=== PATIENT | male | born 1990 | race Caucasian/White ===

== ENCOUNTER 2024-08-26 10:52 | Emergency (ER) | payer OTHER, SELFPAY ==
[2024-08-26 11:00] VITALS: BP 132/88; PULSE 89; RESP 18; TEMP 36.4; O2SAT 100
--- OUTSIDE RECORDS SUMMARY | 2024-08-26 11:52 | XMS_ITS | Data Portability ---
Author Organization [facility] Address [address] [place] [address] Care Team Providers Care Credit Checker Name Role Phone BEAR LIRIANO [facility] Assessment No assessment recorded. Plan of Treatment Reminders Order Date Submit Date Provider Last Modified By Organization Details Last Modified Time Details Appointments None recorded. Lab lipid panel, serum 2023 024 [facility], [address] [place] [address] 2, [place], [address], 4 10:37:14 hepatic function panel, serum 2023 024 [facility], [address] [place] [address] 2, [place], [address], 4 10:37:15 lipid panel, serum 2023 024 eemeryma [facility], [address] [place] [address] 2, [place], [address], 4 10:04:39 HbA1c (hemoglob in A1c), blood 2023 024 In-Office Order, Internal Use Only DO Not Attach Compendium DO Not Attach Compendium, Do Not Delete/merge, [id number] 4 14:31:06 lipid panel, serum 2023 024 [facility], [address] [facility], [facility] 2, [place], [address], 4 08:37:33 CMP, serum or plasma 2023 024 [facility], [address] [facility] [address], [place], [address], 4 08:37:34 CBC 2023 024 [facility], [address] [facility] [address], [place], [address], 4 08:37:34 lipid panel, serum 2016 017 [facility], [address], [address], [place], [address], 7 11:06:28 HbA1c (hemoglob in A1c), blood 2016 017 [facility], [address], [address], [place], [address], 7 11:06:28 CBC 2016 017 [facility], [address], [address], [place], [address], 7 11:06:28 CMP, serum or plasma 2016 017 [facility], [address], [address], [place], [address], 7 11:06:28 Referral None recorded. Procedures None recorded. Surgeries None recorded. Imaging US, abdomen + pelvis 2016 017 ATHENAFAX Not available 7 16:34:30 Medication Orders Lexapro 10 mg tablet 2023 024 [facility], [address] [facility], [place], [address], 4 15:59:31 Nicoderm CQ 21 mg/24 hr daily transderm al patch 2016 [facility]17 [id number], [address], [place], [place], [id number], 08:19:27 Patient TargetsNo targets recorded. Patient Instructions Encounter Date Encounter Id Patient Instructions Last Modified By Organization Details Last Modified Time 05/31/2016 [id number] f/u in 1 month nsuthan Not available 05/31/2016 11:12:42 11/17/2023 [id number] A healthy lifestyle: care instructions [email or web address] Not available 11/17/2023 14:31:05 Reason for Referral None Reported. Results Created Date Observation Date Name Description Value Unit Range Abnormal Flag Note LastModifiedBy Organization Detail LastModifiedTime 11/17/1911/18/2023 LIPID PANEL cholesterol, total 293 mg/dL 100-19 9 above high normal Not Available [facility] ([facility]) [address] [place], [address], 11/18/2023 08:37:33 11/17/19 24 11/18/2023 LIPID PANEL triglyceride s 195 mg/dL 0-149 above high normal Not Available [facility] ([facility]) [address] [place], [address], 11/18/2023 08:37:33 11/17/19 24 11/18/2023 LIPID PANEL HDL cholesterol 55 mg/dL >39 Not Available [facility] ([facility]) [address] [place], [address], 11/18/2023 08:37:33 11/17/19 24 11/18/2023 LIPID PANEL VLDL cholesterol ronna 37 mg/dL 5-40 Not Available [facility] ([facility]) [address] [place], [address], 11/18/2023 08:37:33 11/17/19 24 11/18/2023 LIPID PANEL LDL chol calc ([facility]) 201 mg/dL 0-99 above high normal Not Available [facility] ([facility]) [address] [facility], [place], [address], 11/18/2023 08:37:33 11/17/19 24 11/18/2023 LIPID PANEL LDL calc comment: COMMEN T Consi rowena evalu ating for Famil ial Hyper yaa stero lemia (FH), if clini yuliana indic ated. Not Available [facility] ([facility]) [address] [place], [address], 11/18/2023 08:37:33 11/17/19 24 11/18/2023 COMP. METAB OLIC PANEL (14) glucose 110 mg/dL 70-99 above high normal Not Available [facility] ([facility]) [address] [place], [address], 11/18/2023 08:37:34 11/17/19 24 11/18/2023 COMP. METAB OLIC PANEL (14) BUN 9 mg/dL 6-20 Not Available [facility] ([facility]) [address] [place], [address], 11/18/2023 08:37:34 11/17/19 24 11/18/2023 COMP. METAB OLIC PANEL (14) creatinine 1.12 mg/dL 0.76-1 .27 Not Available [facility] ([facility]) [address] [place], [address], 11/18/2023 08:37:34 11/17/19 24 11/18/2023 COMP. METAB OLIC PANEL (14) eGFR 90 mL/mi n/1.7 3 >59 Not Available [facility] ([facility]) [address] [place], [address], 11/18/2023 08:37:34 11/17/19 24 11/18/2023 COMP. METAB OLIC PANEL (14) BUN/creatini ne ratio 8 9-20 below low normal Not Available [facility] ([facility]) [address] [facility] [place], [address], 11/18/2023 08:37:34 11/17/19 24 11/18/2023 COMP. METAB OLIC PANEL (14) sodium 139 mmol/ L 134-14 4 Not Available [facility] ([facility]) [address] [place], [address], 11/18/2023 08:37:34 11/17/19 24 11/18/2023 COMP. METAB OLIC PANEL (14) potassium 4.1 mmol/ L 3.5-5. 2 Not Available [facility] ([facility]) [address] [place], [address], 11/18/2023 08:37:34 11/17/19 24 11/18/2023 COMP. METAB OLIC PANEL (14) chloride 98 mmol/ L 96-106 Not Available [facility] ([facility]) [address] [place], [address], 11/18/2023 08:37:34 11/17/19 24 11/18/2023 COMP. METAB OLIC PANEL (14) carbon dioxide, total 24 mmol/ L 20-29 Not Available [facility] ([facility]) [address] [place], [address], 11/18/2023 08:37:34 11/17/19 24 11/18/2023 COMP. METAB OLIC PANEL (14) calcium 9.9 mg/dL 8.7-10 .2 Not Available [facility] ([facility]) [address] [place], [address], 11/18/2023 08:37:34 11/17/19 24 11/18/2023 COMP. METAB OLIC PANEL (14) protein, total 7.6 g/dL 6.0-8. 5 Not Available [facility] ([facility]) [address] [place], [address], 11/18/2023 08:37:34 11/17/19 24 11/18/2023 COMP. METAB OLIC PANEL (14) albumin 5.2 g/dL 4.1-5. 1 above high normal Not Available [facility] ([facility]) [address] [facility] [place], [address], 11/18/2023 08:37:34 11/17/19 24 11/18/2023 COMP. METAB OLIC PANEL (14) globulin, total 2.4 g/dL 1.5-4. 5 Not Available [facility] ([facility]) [address] [facility] [place], [address], 11/18/2023 08:37:34 11/17/19 24 11/18/2023 COMP. METAB OLIC PANEL (14) bilirubin, total 0.4 mg/dL 0.0-1. 2 Not Available [facility] ([facility]) [address] [facility] [place], [address], 11/18/2023 08:37:34 11/17/19 24 11/18/2023 COMP. METAB OLIC PANEL (14) alkaline phosphatase 86 IU/L 44-121 Not Available [facility] ([facility]) [address] [facility] [place], [address], 11/18/2023 08:37:34 11/17/19 24 11/18/2023 COMP. METAB OLIC PANEL (14) AST (SGOT) 109 IU/L 0-40 above high normal Not Available [facility] ([facility]) [address] [facility] [place], [address], 11/18/2023 08:37:34 11/17/19 24 11/18/2023 COMP. METAB OLIC PANEL (14) ALT (SGPT) 228 IU/L 0-44 above high normal Not Available [facility] ([facility]) [address] [facility] [place], [address], 11/18/2023 08:37:34 11/17/19 24 11/18/2023 CBC, PLATE LET, NO DIFFE RENTI AL WBC 4.5 x10e3 /uL 3.4-10 .8 Not Available [facility] ([facility]) [address] [facility], [place], [address], 11/18/2023 08:37:34 11/17/19 24 11/18/2023 CBC, PLATE LET, NO DIFFE RENTI AL RBC 5.36 x10e6 /uL 4.14-5 .80 Not Available [facility] ([facility]) [address] [facility], [place], [address], 11/18/2023 08:37:34 11/17/1911/18/2023 CBC, PLATE LET, NO DIFFE RENTI AL hemoglobin 17.3 g/dL 13.0-1 7.7 Not Available [facility] ([facility]) [address] [facility], [place], [address], 11/18/2023 08:37:34 11/17/19 24 11/18/2023 CBC, PLATE LET, NO DIFFE RENTI AL hematocrit 49.7 % 37.5-5 1.0 Not Available [facility] ([facility]) [address] [facility], [place], [address], 11/18/2023 08:37:34 11/17/1911/18/2023 CBC, PLATE LET, NO DIFFE RENTI AL MCV 93 fL 79-97 Not Available [facility] ([facility]) [address] [facility], [place], [address], 11/18/2023 08:37:34 11/17/1911/18/2023 CBC, PLATE LET, NO DIFFE RENTI AL MCH 32.3 pg 26.6-3 3.0 Not Available [facility] ([facility]) [address] [place], [address], 11/18/2023 08:37:34 11/17/1911/18/2023 CBC, PLATE LET, NO DIFFE RENTI AL MCHC 34.8 g/dL 31.5-3 5.7 Not Available [facility] ([facility]) [address] [facility], [place], [address], 11/18/2023 08:37:34 11/17/19 24 11/18/2023 CBC, PLATE LET, NO DIFFE RENTI AL RDW 13.0 % 11.6-1 5.4 Not Available [facility] ([facility]) [address] [facility], [place], [address], 11/18/2023 08:37:34 11/17/19 24 11/18/2023 CBC, PLATE LET, NO DIFFE RENTI AL platelets 177 x10e3 /uL 150-45 0 Not Available [facility] ([facility]) [address] [facility], [place], [address], 11/18/2023 08:37:34 11/17/19 24 11/17/2023 HbA1c (hemo globi n A1c), blood HbA1c 5.0 Not Available In-Office Order Internal Use Only DO Not Attach Compendium DO Not Attach Compendium, Do Not Delete/merge, [id number] 11/17/2023 13:41:08 11/27/19 24 11/28/2023 HEPAT IC FUNCT ION PANEL (7) protein, total 6.9 g/dL 6.0-8. 5 Not Available [facility] ([facility]) [address] [facility], [place], [address], 11/28/2023 08:37:26 11/27/19 24 11/28/2023 HEPAT IC FUNCT ION PANEL (7) albumin 4.7 g/dL 4.1-5. 1 Not Available [facility] ([facility]) [address] [facility], [place], [address], 11/28/2023 08:37:26 11/27/19 24 11/28/2023 HEPAT IC FUNCT ION PANEL (7) bilirubin, total 0.6 mg/dL 0.0-1. 2 Not Available [facility] ([facility]) [address] [facility] [place], [address], 11/28/2023 08:37:26 11/27/19 24 11/28/2023 HEPAT IC FUNCT ION PANEL (7) bilirubin, direct 0.17 mg/dL 0.00-0 .40 Not Available [facility] ([facility]) [address] [facility] [place], [address], 11/28/2023 08:37:26 11/27/19 24 11/28/2023 HEPAT IC FUNCT ION PANEL (7) alkaline phosphatase 74 IU/L 44-121 Not Available [facility] ([facility]) [address] [facility] [place], [address], 11/28/2023 08:37:26 11/27/19 24 11/28/2023 HEPAT IC FUNCT ION PANEL (7) AST (SGOT) 97 IU/L 0-40 above high normal Not Available [facility] ([facility]) [address] [facility] [place], [address], 11/28/2023 08:37:26 11/27/19 24 11/28/2023 HEPAT IC FUNCT ION PANEL (7) ALT (SGPT) 210 IU/L 0-44 above high normal Not Available [facility] ([facility]) [address] [facility] [place], [address], 11/28/2023 08:37:26 11/27/19 24 11/28/2023 INTER PRETA TION: interpretati on: Commen t Not infec laya with HCV unles s early or acute infec tion is suspe cted (whic h may be delay ed in an immun ocomp romis ed indiv idual ), or other evide nce exist s to indic ate HCV infec tion. Not Available [facility] ([facility]) [address] [facility] [place], [address], 11/28/2023 08:37:28 11/27/19 24 11/28/2023 HCV ANTIB MARY RFX TO QUANT PCR HCV Ab NON REACTI VE nonrea ctive Not Available [facility] ([facility]) [address] [facility], [place], [address], 11/28/2023 08:37:29 11/27/19 24 11/28/2023 HAV ANTIB MARY W/ RFX hep A Ab, total POSITI VE negati ve abnormal Comme nt: The HAV total antib mary assay detec ts both IgG and IgM but does not diffe renti ate betwe en them. A negat alek resul t sugge sts susce ptibi lity to infec tion. A posit alek resul t could be due to vacci natio n, previ ously resol daniel infec tion or activ e infec tion. Testi ng for HAV IgM shoul d be perfo rmed if activ e HAV infec tion is suspe cted. [facility] offer s profi les that will autom atica lly refle x posit alek HAV total antib mary resul ts to IgM (e.g. , panel #[id number] HAV Antib mary w/ Rfx). Not Available [facility] ([facility]) [address] [facility], [place], [address], 11/28/2023 08:37:30 11/27/19 24 11/28/2023 HEPAT ITIS B CORE AB W/REF GARO hep B core Ab, tot NEGATI VE negati ve Not Available [facility] ([facility]) [address] [facility], [place], [address], 11/28/2023 08:37:30 11/27/19 24 11/28/2023 IRON AND TIBC iron bind.cap.(TI BC) 315 ug/dL 250-45 0 Not Available [facility] ([facility]) [address] [facility], [place], [address], 11/28/2023 08:37:31 11/27/19 24 11/28/2023 IRON AND TIBC UIBC 181 ug/dL 111-34 3 Not Available [facility] ([facility]) [address] [place], [address], 11/28/2023 08:37:31 11/27/19 24 11/28/2023 IRON AND TIBC iron 134 ug/dL 38-169 Not Available [facility] ([facility]) [address] [facility], [place], [address], 11/28/2023 08:37:31 11/27/19 24 11/28/2023 IRON AND TIBC iron saturation 43 % 15-55 Not Available [facility] ([facility]) [address] [facility], [place], [address], 11/28/2023 08:37:31 11/27/19 24 11/28/2023 HEP B SURFA CE AB, QUAL hep B surface Ab, qual REACTI VE Non React alek: Incon siste nt with immun ity, less than 10 mIU/m L React alek: Consi stent with immun ity, great er than 9.9 mIU/m L Not Available [facility] ([facility]) [address] [facility], [place], [address], 11/28/2023 08:37:32 11/27/19 24 11/28/2023 HBSAG SCREE N HBsAg screen NEGATI VE negati ve Not Available [facility] ([facility]) [address] [place], [address], 11/28/2023 08:37:32 11/27/19 24 11/28/2023 HEP A AB, IGM hep A Ab, IgM Negati ve negati ve Not Available [facility] ([facility]) [address] [place], [address], 11/28/2023 08:37:33 11/27/19 24 11/28/2023 PT AND PTT INR 1.0 0.9-1. 2 Refer ence inter daniel is for non-a ntico agula laya patie nts. Sugge sted INR thera peuti c range for Vitam in K antag onist thera py: Stand jennifer Dose (mode rate inten sity thera peuti c range ): 2.0 - 3.0 Highe r inten sity thera peuti c range 2.5 - 3.5 Not Available [facility] ([facility]) [address] [place], [address], 11/28/2023 08:37:34 11/27/19 24 11/28/2023 PT AND PTT prothrombin time 11.0 sec 9.1-12 .0 Not Available [facility] ([facility]) [address] [place], [address], 11/28/2023 08:37:34 11/27/19 24 11/28/2023 PT AND PTT APTT 27 sec 24-33 This test has not been valid ated for monit oring unfra ction ated hepar in thera py. aPTT- based thera peuti c range s for unfra ction ated hepar in thera py have not been estab danny Montenegro gener al guide lines on Hepar in [place] , refer to the [facility] Direc torhannah of Dwight [facility]. Not Available [facility] ([facility]) [address] [facility], [place], [address], 11/28/2023 08:37:34 02/27/20 24 02/28/2024 LIPID PANEL cholesterol, total 211 mg/dL 100-19 9 above high normal Not Available [facility] ([facility]) [address] [place], [address], 02/28/2024 10:37:14 02/27/20 24 02/28/2024 LIPID PANEL triglyceride s 205 mg/dL 0-149 above high normal Not Available [facility] ([facility]) [address] [place], [address], 02/28/2024 10:37:14 02/27/20 24 02/28/2024 LIPID PANEL HDL cholesterol 43 mg/dL >39 Not Available [facility] ([facility]) [address] [facility] [place], [address], 02/28/2024 10:37:14 02/27/20 24 02/28/2024 LIPID PANEL VLDL cholesterol ronna 37 mg/dL 5-40 Not Available [facility] ([facility]) [address] [facility], [place], [address], 02/28/2024 10:37:14 02/27/20 24 02/28/2024 LIPID PANEL LDL chol calc ([facility]) 131 mg/dL 0-99 above high normal Not Available [facility] ([facility]) [address] [facility], [place], [address], 02/28/2024 10:37:14 02/27/20 24 02/28/2024 HEPAT IC FUNCT ION PANEL (7) protein, total 6.8 g/dL 6.0-8. 5 Not Available [facility] ([facility]) [address] [place], [address], 02/28/2024 10:37:15 02/27/20 24 02/28/2024 HEPAT IC FUNCT ION PANEL (7) albumin 4.5 g/dL 4.1-5. 1 Not Available [facility] ([facility]) [address] [place], [address], 02/28/2024 10:37:15 02/27/20 24 02/28/2024 HEPAT IC FUNCT ION PANEL (7) bilirubin, total 0.5 mg/dL 0.0-1. 2 Not Available [facility] ([facility]) [address] [place], [address], 02/28/2024 10:37:15 02/27/20 24 02/28/2024 HEPAT IC FUNCT ION PANEL (7) bilirubin, direct 0.18 mg/dL 0.00-0 .40 Not Available [facility] ([facility]) [address] [place], [address], 02/28/2024 10:37:15 02/27/20 24 02/28/2024 HEPAT IC FUNCT ION PANEL (7) alkaline phosphatase 64 IU/L 44-121 Not Available [facility] ([facility]) [address] [place], [address], 02/28/2024 10:37:15 02/27/20 24 02/28/2024 HEPAT IC FUNCT ION PANEL (7) AST (SGOT) 22 IU/L 0-40 Not Available [facility] ([facility]) [address] [facility], [place], [address], 02/28/2024 10:37:15 02/27/20 24 02/28/2024 HEPAT IC FUNCT ION PANEL (7) ALT (SGPT) 23 IU/L 0-44 Not Available [facility] ([facility]) [address] [facility], [place], [address], 02/28/2024 10:37:15 Result Notes None recorded. Problems Name Problem SNOMED Code Status Onset Date Resolution Date Notes Provider Name and Address Organization Details Recorded Time Elevated blood-press ure reading without diagnosis of hypertensio n 368854328 Completed 202312/06/2023 BEAR LIRIANO MD Attn: Arash kaur,[address] [place], [address], [facility] 4 13:15:26 Anxiety 11149817 Active 2023 BEAR LIRIANO MD Attn: Arash kaur,[address] [place], [address], [facility] 4 12:15:54 Tobacco user 329505459 Active 2023 BEAR LIRIANO MD Attn: Arash kaur,[address] [facility], [place], [address], [facility] 4 12:16:01 Dyslipidemi a 609774040 Active 2023 BEAR LIRIANO MD Attn: Arash kaur,[address] [facility], [place], [address], [facility] 4 11:21:42 Acute hepatitis 32811835 Active 2023 BEAR LIRIANO MD Attn: Arash kaur,[address] [facility], [place], [address], [facility] 4 11:21:40 Problem Notes None recorded. Procedures Surgical History Date Name Laterality Status Provider Name and Address Organization Details Recorded Time 2 Other completed Carmen Roberts [facility] 05/31/2016 10:34:12 2 circumcision completed Kenia Concepcion MA [facility] 11/17/2023 08:24:34 Imaging Results None recorded. Procedure Notes None recorded. Medical Equipment None Reported. Allergies No known drug allergies Medications Name Sig Start Date Stop Date Status Note LastModified by Organization Details LastModified Time Nicoderm CQ 21 mg/24 hr daily transdermal patch Apply 1 patch every day by transderm al route for 42 days. 11/16 completed Not Available Not Available Not Available escitalopra m 10 mg tablet TAKE 1 TABLET BY MOUTH ONCE DAILY FOR ANXIETY active Not Available Not Available No t Available Vitals Date Recorded Body height Body mass index (BMI) Body weight Oxygen saturation Oxygen saturation in Arterial blood by Pulse oximetry Heart rate Body temperature Body height Body mass index (BMI) Body weight Oxygen saturation Oxygen saturation in Arterial blood by Pulse oximetry Heart rate Body temperature Systolic blood pressure Diastolic blood pressure Systolic blood pressure Diastolic blood pressure Systolic blood pressure Diastolic blood pressure Provider Name and Address Organization Details Last Updated DateTime 4 167.64 cm 27.1 kg/m2 34229.2 2 g 97 % 97 % 98 /min 98.4 [degF] 167.64 cm 27.4 kg/m2 37535.2 6 g 98 % 98 % 96 /min 98.4 [degF] 136 mm[Hg] 92 mm[Hg] 153 mm[Hg] 104 mm[Hg] 133 mm[Hg] 91 mm[Hg] Kenia Quezadaford [facility] 4 14:44:11 Date Recorded Body height Body mass index (BMI) Body weight Oxygen saturation Oxygen saturation in Arterial blood by Pulse oximetry Heart rate Body temperature Respiratory rate Systolic blood pressure Diastolic blood pressure Provider Name and Address Organization Details Last Updated DateTime 4 167.64 cm 26.8 kg/m2 88529.3 3 g 100 % 100 % 64 /min 97.6 [degF] 16 /min 127 mm[Hg] 82 mm[Hg] Edith Florez MA [facility] 4 12:02:58 Date Recorded Body height Body mass index (BMI) Body weight Oxygen saturation Oxygen saturation in Arterial blood by Pulse oximetry Heart rate Body temperature Systolic blood pressure Diastolic blood pressure Provider Name and Address Organization Details Last Updated DateTime 4 167.64 cm 25 kg/m2 89893.5 2 g 100 % 100 % 74 /min 98.2 [degF] 114 mm[Hg] 77 mm[Hg] [facility] 4 15:35:19 Date Recorded Body height Body weight Body mass index (BMI) Heart rate Respiratory rate Body temperature Oxygen saturation Oxygen saturation in Arterial blood by Pulse oximetry Systolic blood pressure Diastolic blood pressure Provider Name and Address Organization Details Last Updated DateTime 7 167.64 cm 37827.9 1 g 25.7 kg/m2 101 /min 12 /min 98.7 [degF] 100 % 100 % 120 mm[Hg] 82 mm[Hg] Carmen Roberts [facility] 7 10:29:00 Social History Question Answer Notes LastModified by Organizat ion Details LastModified Time Tobacco Smoking Status Current Every Day Smoker Carmen Armando chilel [facility] 05/31/2016 10:07:27 What Is Your Level Of Alcohol Consumption? None eemeryma Information not available 12/06/2023 Are You Blind Or Do You Have Difficulty Seeing? Yes 11/17/23 Wears Contacts Information not available 11/17/2023 What Is Your Level Of Caffeine Consumption? Occasional Information not available 11/17/2023 How Much Tobacco Do You Chew? None Information not available 05/31/2016 In The 14 Days Before Symptom Onset, Have You Had Close Contact With A Laboratory-confi rmed COVID-19 While That Case Was Ill? No Information not available 11/17/2023 In The 14 Days Before Symptom Onset, Have You Had Close Contact With A Person Who Is Under Investigation For COVID-19 While That Person Was Ill? No Information not available 11/17/2023 Have You Been To An Area Known To Be High Risk For COVID-19? No Information not available 11/17/2023 Are You Currently Employed? No Information not available 11/17/2023 Are You Deaf Or Do You Have Serious Difficulty Hearing? No Information not available 11/17/2023 What Type Of Diet Are You Following? REGULAR Information not available 05/31/2016 Which Illicit Or Recreational Drugs Have You Used? Denies Information not available 05/31/2016 Do You Or Have You Ever Used E-cigarettes Or Vape? Current User Of Electronic Cigarettes Information not available 11/17/2023 Are There Any Guns Present In Your Home? Yes Information not available 11/17/2023 Marital Status Informatio n not available 05/31/2016 What Was The Date Of Your Most Recent Tobacco Screening? 02/27/2024 Information not available 02/27/2024 How Many Children Do You Have? 3 Information not available 11/17/2023 What Is Your Current Pack Years? 10-19packyear s Information not available 11/17/2023 Do You Use Protection During Sex? No Information not available 11/17/2023 What Is Your Relationship Status? Information not available 11/17/2023 Do You Use Your Seat Belt Or Car Seat Routinely? Yes Information not available 11/17/2023 Are You Sexually Active? Yes Information not available 11/17/2023 Do You Have Smoke And Carbon Monoxide Detectors In Your Home? Yes Information not available 11/17/2023 At What Age Did You Start Smoking Tobacco? 19 Information not available 05/31/2016 Are You Passively Exposed To Smoke? Yes Information not available 11/17/2023 Do You Or Have You Ever Used Smokeless Tobacco? Never Used Smokeless Tobacco Information not available 11/17/2023 How Much Tobacco Do You Smoke? 0.5 PPD Information not available 11/17/2023 General Stress Level Medium Information not available 11/17/2023 Do You Feel Stressed (tense, Restless, Nervous, Or Anxious, Or Unable To Sleep At Night)? [id number] 11/17/23 Stress And Anxiety Information not available 11/17/2023 Do You Use Any Illicit Or Recreational Drugs? No Information not available 11/17/2023 Do You Use Sunscreen Routinely? No Information not available 11/17/2023 Has Tobacco Cessation Counseling Been Provided? Yes Information not available 11/17/2023 On What Date Was Tobacco Cessation Counseling Provided? 02/27/2024 Information not available 02/27/2024 How Many Years Have You Smoked Tobacco? 14 Information not available 11/17/2023 Do You Or Have You Ever Used Any Other Forms Of Tobacco Or Nicotine? Yes Information not available 11/17/2023 How Many Years Have You Used E-cigarettes Or Vape? 1 Information not available 11/17/2023 Sex: Male Functional Status Question Answer Note LastModified by Organization D etails LastModified Time Are you able to care for yourself? Yes Information n ot available 11/17/2023 What is your exercise level? None Information not available 11/17/2023 Mental Status None recorded. Family History Relationship Description Onset Age of this Age Resolved Age Notes LastModified by Organization Details LastModified Time Mother Asthma Not available 10:07:14 Father Hypertensive disorder [email or web address] Not available 11/16 08:19:50 Paternal Grandmother Diabetes mellitus [email or web address] Not available 11/16 08:20:11 Maternal Grandmother Malignant neoplasm of lung crexfordma Not available 11/16 08:20:43 Medical History Condition Response Coronary Artery Disease N Other N High Blood Pressure N Atrial Fibrillation N Thyroid Problems N Kidney or Bladder Problems N GI Problems N Depression N COPD N Blood Clots N Have you had a mammogram in the last yea r? N Skin Problems N Eating Disorder N Anemia N Heart Attack (PA) N Anxiety Disorder Y Diabetes N Muscle, Joint, or Bone Problems N Arthritis N Seizures/Epilepsy N Have you had a colonoscopy in the last 1 0 years? N Acid Reflux (GERD) N Cancer N Stroke N Asthma N Allergies N Have you had a PSA blood test in the las t year? N ADHD N Substance Abuse N High Cholesterol N Hepatitis N Liver Disease N Schizophrenia N Headaches N Heart Failure N Osteoporosis N Immunizations Vaccine Type Date Status Note Provider Nam e and Address Organization Details Recorded Time Hib, unspecified formulation 6 completed BEAR LIRIANO MD Attn: [address] [place], [address], [facility] 12/06/2023 12:14:00 Hib, unspecified formulation 6 completed BEAR LIRIANO MD Attn: [address] [place], [address], [facility] 12/06/2023 12:14:00 IPV 6 completed BEAR LIRIANO MD Attn: [address] [place], [address], [facility] 12/06/2023 12:14:00 IPV 8 completed BEAR LIRIANO MD Attn: [address] [place], [address], [facility] 12/06/2023 12:14:00 meningococcal ACWY, unspecified formulation 8 completed BEAR LIRIANO MD Attn: [address] [place], [address], [facility] 12/06/2023 12:14:00 MMR 6 completed BEAR LIRIANO MD Attn: [address] [place], [address], [facility] 12/06/2023 12:14:00 MMR 6 completed BEAR LIRIANO MD Attn: [address] [facility], [place], [address], [place] [facility] 12/06/2023 12:14:00 influenza, unspecified formulation 8 completed BEAR LIRIANO MD Attn: [address] [facility], [place], [address], [place] [facility] 12/06/2023 12:14:00 Tdap 6 completed BEAR LIRIANO MD Attn: [address] [facility], [place], [address], [place] [facility] 12/06/2023 12:14:00 DTP 8 completed BEAR LIRIANO MD Attn: [address]ing[address] [facility], [place], [address], [facility] 12/06/2023 12:14:00 DTP 6 completed BEAR LIRIANO MD Attn: Accounting[address] [facility], [place], [address], [place] [facility] 12/06/2023 12:14:00 DTP 6 completed BEAR LIRIANO MD Attn: [address]ing[address] [facility], [place], [address], [place] [facility] 12/06/2023 12:14:00 OPV 6 completed BEAR LIRIANO MD Attn: [address]ing[address] [facility], [place], [address], [place] [facility] 12/06/2023 12:14:00 OPV 3 completed BEAR LIRIANO MD Attn: Accounting[address] [facility], [place], [address], [place] [facility] 12/06/2023 12:14:00 DTP-Hib 6 completed BEAR LIRIANO MD Attn: [address] [facility], [place], [address], [place] [facility] 12/06/2023 12:14:00 DTP-Hib 3 completed BEAR LIRIANO MD Attn: [address] [facility], [place], [address], [facility] 12/06/2023 12:14:00 Hep B, adolescent or pediatric 6 completed BEAR LIRIANO MD Attn: [address] [place], [address], [facility] 12/06/2023 12:14:00 Hep B, adolescent or pediatric 2 completed BEAR LIRIANO MD Attn: [address] [facility], [place], [address], [facility] 12/06/2023 12:14:00 Hep A, unspecified formulation 8 completed BEAR LIRIANO MD Attn: [address] [facility], [place], [address], [facility] 12/06/2023 12:14:00 tetanus toxoid, unspecified formulation 2 completed Carmen Roberts [facility], [place] - [facility] 05/31/2016 10:35:14 Past Encounters Encounter ID Performer Location Encounter Start Date Encounter Closed Date Diagnosis/Indication Diagnosis SNOMED-CT Code Diagnosis ICD10 Code Diagnosis Note [id number] MD Shirin Pacheco (Adult Med) [address] [place] [address] 05/31/2016 09:42:25 05/31/2016 14:17:40 Adult health examination 896087007 Z00.00 healthy diet and exercise discussed with pt Smoker 84441244 F17.200 pt is willing to try patches to quit smoking Inguinal pain 746745446 R10.2 check us [id number] MD Shirin PAIGE (LAST PICKER) [address] [address] 11/17/2023 08:10:54 11/17/2023 14:53:23 Patient not examined 040110771 Z53.9 Patient reschedule d for this afternoon due to physician availabili ty [id number] MD Shirin PAIGE (LAST PICKER) [address] [place] [address] 11/17/2023 13:54:29 11/21/2023 20:35:31 Adult health examination 479004714 Z00.00 - Reviewed risks for cardiovasc ular disease, infection, and cancer; ordered screening tests as appropriat e- Recommende d annual flu vaccine and updated 2022 COVID vaccine Overweight 171226009 E66 .3 Z68.27 - Continue active lifestyle 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.1 - Reviewed normal A1c results and provided letter for occupation al medicine- Consider repeating A1c in 3-6 months to confirm no new developmen t of diabetes or prediabete s Elevated blood-pressure reading without diagnosis of hypertension 675873849 R03.0 - BP elevated but patient reports anxiety today- Recommende d home monitoring - RTC in 2 weeks for BP check Immunization due 3842549 [id number] Z28.39 - Recommende d Tdap- Patient declined vaccinatio n today Tobacco user 498880777 Z 72.0 - Smokes 0.5 ppd- Recommende d cessation- Barriers to quit: was working job where everyone smoked Anxiety 21324691 F41.9 - Not interested in therapy at this time- Will start SSRI with Lexapro - recommend 5 mg daily x8d, then increase to 10 mg daily [id number] MD Shirin PAIGE (LAST PICKER) [address] [place] [address] 12/06/2023 11:55:48 12/20/2023 16:20:27 Elevated blood-pressure reading without diagnosis of hypertension 115052725 R03.0 - Reviewed home blood pressure log. 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 Quit drinking about 2 weeks ago (early November)- Will recheck hepatic function panel in ~3 months. If persistent ly elevated, consider abdominal ultrasound to evaluate liver echotextur e. Dyslipidemia 408804752 E 78.5 - 11/17/23: Tchol 293, HDL 55, LDL 201, VLDL 37. 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 If LDL persistent ly above 180, will prescribe statin with goal of decreasing LDL by 50% (goal LDL 100) Insomnia 243709013 G47.0 0 - Advised patient of sleep hygiene practices- Continue abstaining from alcohol- RTC if no improvemen t in sleep after 2-4 weeks of sleep consolidat ion and continued alcohol avoidance [id number] [facility] [address] [place] [address] 02/27/2024 15:25:43 02/28/2024 10:26:32 Dyslipidemia 556695348 E78.5 - 11/17/23: Tchol 293, HDL 55, LDL 201, VLDL 37. 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 Recommende d repeating lipid panel after fasting. If LDL persistent ly above 180, will prescribe statin with goal of decreasing LDL by 50% (goal LDL 100).- 02/27/24: Has not been able to repeat lipid panel yet. F/u lipid panel. Reminded patient that statin may be necessary if LDL persistent ly elevated. 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 Quit heavy drinking in early November; still has drinks occasional ly.- 02/27/24: f/u repeat hepatic function panel in ~3 months. If persistent ly elevated LFTs, consider abdominal ultrasound to evaluate liver echotextur e. Health Concerns Section Related Observation LastModified by Organization Detai ls LastModified Time None Recorded Concern Status LastModified by Organization Details LastModified Time None Recorded Advance Directives Directive None Recorded Payers Encounter Date Sequence Insurance Name Policy Number Policy Larios Covered Member ID Larios Member ID Guarantor Name 05/31/2016 1 [place] Hang Santiago [id number] Hang Santiago 11/17/2023 1 [employer] [place] ON [place] 2020 (MEDICAID REPLACEMENT - HMO) Hang Santiago [id number] Hang Santiago 11/17/2023 1 [employer] [place] 2020 [place]ACEMENT - [place]MO) Hang Santiago [id number] Hang Santiago 12/06/2023 1 [employer] [place] - [place]MO) Hang Santiago [id number] Hang Santiago 02/27/2024 1 [employer] [place] - [place]MO) Hang Santiago [id number] Hang Santiago Notes Date Note Type Note Provider Name and Address Organization Details Recorded Time 05/31/2016 text/html Generic HPI TemplateReported bypatient.Location:R/i nguinal pain Severity:mild Onset/Timing:gradual Context:Patient is here to establish Aggravating factors:none Associated Symptoms:noticed swelling in R/inguinal areaNotes:Denied N/V. 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 No- Family history of PA, CVA? No known FHx- AAA screening (age 65-75 years who have ever smoked)? N/A - age Infection risk- Sexually active with - Vaccines due? Tdap Cancer screenings- Prostate cancer: No known FHx- Colon cancer: No known FHx- Lung cancer: Smokes 0.5 ppd since age 19 BEAR LIRIANO MD Attn: [address] [facility], [place], [address], [facility] 11/19/2023 12:21:31 11/17/2023 text/html Patient reschedu led for this afternoon due to physician availability BEAR LIRIANO MD Attn: [address] [place], [address], [facility] 11/17/2023 14:53:21 12/06/2023 text/html Lab result follo w up- Here to discuss results of recent labs: lipid panel, CMP- Has increased fruit, vegetable intake since learning about high cholesterol results Blood pressure follow up- Has been tracking BP at home; see scanned log Insomnia- Cannot fall asleep until after 4 am. Will sleep for 5-6 hours.- Is tired all the time and will nap anywhere from 1-3 hours during the day- Usually gets sleepy 2-3 hours after taking Lexapro- Thinks sleep is related to quitting alcohol use 2 weeks ago. No withdrawal symptoms.- Has not tried OTC sleep aids, as they have given him weird dreams/nightmares in the past- Has TV on playing rain sounds and with dim screen to fall asleep BEAR LIRIANO MD Attn: [address] [place], [address], [facility] 12/06/2023 13:24:19 02/27/2024 text/html HLD- Found out h is dad has high cholesterol- Has been sticking to dietary changes- Has also cut back on alcohol use. Previously was drinking 12-18 beers per day. Last drank a couple days ago after successful whitehead; had 3 beers. BEAR LIRIANO MD Attn: [address] [place], [address], [facility] 02/27/2024 16:33:40
--- NOTE | 2024-08-26 12:21 | PC.NURSE ---
1135 PT left without been seen by provider. Pt didn't want to wait any longer.
== END 2024-08-26 11:35 | disposition left against medical advice (07) ==
PROVIDERS: Emergency Provider Nurse Practitioner Family
DX: R07.81 Pleurodynia (principal)
CPT/HCPCS: 99199